=== PATIENT | male | born 1985 | race Asian ===

== ENCOUNTER 2018-08-12 21:25 | Emergency (ER) | payer OTHER ==
[~2018-08-12] VITALS: Ht 165.1 cm; Wt 77.3 kg
[2018-08-12 22:56] VITALS: BP 140/80
== END 2018-08-12 23:02 | disposition home or self-care (01) ==
LOC: EMS 21:27
DX: K11.20 Sialoadenitis, unspecified (principal); F17.210 Nicotine dependence, cigarettes, uncomplicated; Z88.6 Allergy status to analgesic agent
CPT/HCPCS: 99406